=== PATIENT | female | born 2000 | race Caucasian/White ===

== ENCOUNTER 2018-06-09 16:35 | Emergency (ER) | payer MEDICAID ==
[~2018-06-09] VITALS: Ht 162.6 cm; Wt 59.1 kg
[~2018-06-09 16:35] MED LIST: NOCURR
[2018-06-09 16:37] VITALS: BP 126/67
== END 2018-06-09 19:00 | disposition left against medical advice (07) ==
LOC: EMS 16:36
DX: M79.674 Pain in right toe(s) (principal); Z53.21 Procedure and treatment not carried out due to patient leaving prior to being seen by health care provider